=== PATIENT | female | born 1995 | race Caucasian/White ===

== ENCOUNTER → 2016-12-03 | Outpatient (REF) | LOC: WSOH 13:00 | DX: Z01.83 Encounter for blood typing (principal) ==

== ENCOUNTER 2017-12-21 11:57 | Emergency (ER) | payer OTHER ==
[~2017-12-21] VITALS: Ht 165.1 cm; Wt 61.4 kg
[2017-12-21 11:59] VITALS: BP 121/78; TEMP 98.1
[2017-12-21 12:53] VITALS: PULSE 102
== END 2017-12-21 12:53 | disposition home or self-care (01) ==
LOC: COL.ER 11:57
DX: S50.812A Abrasion of left forearm, initial encounter (principal); V43.52XA Car driver injured in collision with other type car in traffic accident, initial encounter

== ENCOUNTER → 2018-10-17 | Outpatient (CLI) | payer OTHER | LOC: ZCOL.LAB 18:32 | DX: Z11.3 Encounter for screening for infections with a predominantly sexual mode of transmission (principal); N89.8 Other specified noninflammatory disorders of vagina ==